=== PATIENT | male | born 1965 | race Caucasian/White ===

== ENCOUNTER 2023-12-01 22:30 | Emergency (ER) | payer OTHER ==
[2023-12-02] MEDS: cefTRIAXone 1 GM Vial IM ONE (00:06)
[2023-12-02] MEDS: Lidocaine 1% 5 ML VIAL ONE (00:08)
== END 2023-12-02 00:15 | disposition home or self-care (01) ==
LOC: JP.ED 22:30
DX: H66.92 Otitis media, unspecified, left ear (principal); J01.00 Acute maxillary sinusitis, unspecified; Z86.19 Personal history of other infectious and parasitic diseases
CPT/HCPCS: 96372; 99283; J0696